=== PATIENT | female | born 1955 | race Caucasian/White ===

== ENCOUNTER 2017-07-20 13:50 | Emergency (ER) | payer BC ==
[2017-07-20] MEDS ORDERED: DOPamine 400 MG/D5W 250 ML 0 ML ONE (14:04)
[2017-07-20 14:38] LABS: ALT (SGPT) 67 U/L (8-55); AST (SGOT) 215 U/L (5-34); Alkaline Phosphatase 321 U/L (40-150); BUN (Urea Nitrogen) 77 mg/dL (9.8-20.1); Bilirubin, Total 1.4 mg/dL (0.2-1.2); Calc. Creatinine Clearance 0 mL/min (70-130); Calcium 8.4 mg/dL (7.8-10.44); Chloride 100 mmol/L (98-107); Estimated GFR-MDRD 17; Globulin 2.4 g/dL (2.4-3.5); Protein, Total 4.7 g/dL (6.0-8.3)
[2017-07-20 14:44] LABS: Band 2 % (5-11); Hematocrit 23.6 % (36.0-47.0); Macrocytosis SLIGHT = 6-15 cells (100X) (0-5/hpf); Mean Platelet Volume 9.6 fL (7.4-10.4); Metamyelocyte 2 % (0-0); Neutrophil 92 % (42-75); Polychromasia SLIGHT = 2-3 cells (100X) (0-2/hpf); Red Blood Cell (RBC) Count 2.11 mill/uL (4.20-5.40); White Blood Cell (WBC) Count 27.9 thou/uL (4.8-10.8)
[2017-07-20 14:45] LABS: Carbon Dioxide Less than 8 mmol/L (23-31)
[2017-07-20] MEDS ORDERED: Atropine Sulfate 1 mg/10 ml Syringe ONE (18:02)
[2017-07-20] MEDS ORDERED: Calcium Chloride 1 GM/10 ML Abboject SYRINGE ONE (18:02)
[2017-07-20] MEDS ORDERED: Dextrose 50% Abboject 50 ML SYRINGE ONE (18:02)
[2017-07-20] MEDS ORDERED: EPINEPHrine 1 MG/10 ML Abboject SYRINGE ONE (18:02)
== END 2017-07-20 14:17 | disposition expired ==
LOC: ERS 13:50
DX: I46.9 Cardiac arrest, cause unspecified (principal); E16.2 Hypoglycemia, unspecified; J44.9 Chronic obstructive pulmonary disease, unspecified; I10 Essential (primary) hypertension; F32.9 Major depressive disorder, single episode, unspecified; F17.210 Nicotine dependence, cigarettes, uncomplicated
CPT/HCPCS: 36415; 36416; 93005; 96374; 96375; J0171; J0461; J1265